=== PATIENT | female | born 1935 | race Caucasian/White ===

== ENCOUNTER 2018-12-12 06:21 | Day surgery (SDC) | payer MEDICARE, BC, MEDICAID ==
[~2018-12-12] VITALS: Ht 160 cm; Wt 89.3 kg
[2018-12-12] VITALS (12 sets, daily range): BP systolic 95–152; BP diastolic 42–65; PULSE 94–103; RESP 18–36; Ht 160 cm; Wt 89.3 kg
--- NOTE | 2018-12-12 06:32 | PREOPHP ---
DATE OF ADMISSION: 12/12/2018 HISTORY OF PRESENT ILLNESS: This 83-year-old patient is admitted for elective cataract surgery of th e left eye. The patient has had decrease surgery for a number of years and was supposed to have unde rgone cataract surgery; however due to elevated blood sugars, this was postponed until the patient's diabetic condition was optimized. The patient complains of progressive deterioration of vision in emperatriz th eyes. SYSTEMIC HISTORY: Positive for diabetes mellitus, rheumatoid arthritis, hyperlipidemia, essential hy pertension, GERD, chronic kidney disease, major depressive disorder. CURRENT MEDICATIONS: Include: 1. Sertraline. 2. Clonazepam. 3. Docusate. 4. Gabapentin. 5. Glipizide. 6. Omeprazole. 7. [place]. 8. Plaquenil. 9. Quetiapine. 10. Prednisone 5 mg. 11. Metformin. ALLERGIES: THERE ARE NO KNOWN ALLERGIES. PHYSICAL EXAMINATION: The visual acuity is 20/50 in the right eye and 20/400 in the left eye. Slit lamp examination reveals a glaucoma filtering tube in the anterior chamber of the right eye and a pos terior chamber intraocular lens in appropriate position in the right eye. The left eye has anterior cortical nuclear sclerotic and posterior subcapsular cataract changes. Applanation tonometry is 10 m mHg in the right eye and 13 mmHg in the left eye. Examination of the retina is grossly within normal limits. DIAGNOSIS: Advanced nuclear sclerotic and posterior subcapsular cataract, left eye. PLAN: Cataract extraction with lens implant, left eye. The risks and alternatives to the surgery ibrahim ve been discussed with the patient as well as the hope for improvement of visual acuity leading to gr eater ability to perform activities of daily living. The patient understands this and agrees to proc eed with surgery. Dictated By: DEVORAH CONTEH/DAVID Conf#: [id number] DID#: [id number]
[2018-12-12] MEDS ORDERED: LIDOCAINE 4% (MPF) 5 ML INJ ONE (07:00)
[2018-12-12] MEDS ORDERED: CEFAZOLIN 1 GM INJ ONE (07:00)
[2018-12-12] MEDS ORDERED: DEXAMETHASONE 4 MG/ML 1 ML INJ ONE (07:01)
[2018-12-12] MEDS ORDERED: NA HYALURONATE/CHONDROITIN 0.5 ML SYG ONE (07:01)
[2018-12-12] MEDS ORDERED: TETRACAINE 0.5% 4 ML OPH ONE (07:01)
[2018-12-12] MEDS ORDERED: GENTAMICIN 80 MG INJ ONE (07:01)
[2018-12-12] MEDS ORDERED: CARBACHOL 0.01% 1.5 ML OPH INJ ONE (07:01)
[2018-12-12] MEDS ORDERED: EPINEPHrine 1 MG INJ ONE (07:01)
--- NOTE | 2018-12-12 07:06 | PREAC ---
Date/Time of Note Date/Time of Note DATE: 12/12/18 TIME: 07:05 Anesthesia Eval and Record Evaluation Time Pre-Procedure Interview DATE: 12/12/18 TIME: 07:05 Age 83 Sex female NPO: 8 hrs Preoperative diagnosis LEFT EYE CATARACT Planned procedure LEFT EYE CATARACT EXTRACTION W/ IOL Past Medical History Past Medical History: Includes Cardio: HTN, Dyslipidemia Endo: Diabetes Renal: CKD GI: GERD Psych: Depression Surgery & Anesthesia Issues No known issue Meds Anticoagulation: No Beta Brenda within 24 hr: No Reason Beta Brenda not given: Pt. not on B-Brenda Reported Medications Prednisone* (Prednisone*) 5 Mg Tab, 5 MG PO DAILY, TAB 12/12/18 Quetiapine Fumarate* (Quetiapine Fumarate*) 100 Mg Tablet, 100 MG PO DAILY, TAB 12/12/18 Sennosides* (Senna Lax*) 8.6 Mg Tablet, 1 TAB PO DAILY PRN for CONSTIPATION, TAB 12/12/18 Sertraline Hcl* (Zoloft*) 100 Mg Tablet, 200 MG PO DAILY, #60 TAB 12/12/18 Throat Lozenges* (Cepastat*) 9 Eleanor Lozenge, 1 [place] Q3H PRN, LOZENGE 12/12/18 Linagliptin (TRADJENTA) 5 Mg Tablet, 5 MG PO DAILY, TAB 12/12/18 Tramadol Hcl* (Ultram*) 50 Mg Tablet, 50 MG PO BID PRN for PAIN MANAGEMENT, TAB 12/12/18 Tramadol HCl (Tramadol HCl) 50 Mg Tablet, 50 MG PO Q6H PRN for MODERATE PAIN LEVEL 4-6, #120 TAB 12/12/18 Acetaminophen* (Acetaminophen*) 650 Mg Tablet, 650 MG PO Q6H PRN for MILD PAIN LEVEL 1-3, #30 TAB AND FEVER 12/12/18 Insulin Glargine* (Lantus*) 100 Unit/Ml Soln, 10 UNIT SC DAILY, #1 VIAL 12/12/18 Metformin Hcl* (Metformin Hcl*) 1,000 Mg Tablet, 1000 MG PO WITH BREAKFAST DINNE, #60 TAB 12/12/18 Magnesium Hydroxide* (Milk Of Magnesia*) 400 Mg/5 Ml Oral.susp, 30 ML PO DAILY PRN for CONSTIPATION, ML 12/12/18 Multivitamins* (Theragran*) 1 Tab Tab, 1 TAB PO DAILY, TAB 12/12/18 Hydrocodone/Acetaminophen ([place] 5-325 Tablet) 1 Each Tablet, 1 EACH PO Q6 PRN for SEVERE PAIN LEVEL 7-10, TAB 12/12/18 Omeprazole* (Omeprazole*) 20 Mg Capsule.dr, 20 MG PO BID, #60 CAP 12/12/18 Hydroxychloroquine Sulfate* (Plaquenil*) 200 Mg Tab, 200 MG PO BID, TAB 12/12/18 Clonazepam* (Clonazepam*) 0.5 Mg Tablet, 0.5 MG PO TID PRN for ANXIETY, TAB 12/12/18 Rosuvastatin Calcium* (Crestor*) 20 Mg Tablet, 20 MG PO QHS, #30 TAB 12/12/18 Docusate Sodium* (Docusate Sodium*) 100 Mg Capsule, 100 MG PO DAILY PRN for CONSTIPATION, #30 CAP 12/12/18 Bisacodyl (Dulcolax) 10 Mg Supp.rect, 10 MG RC DAILY PRN for CONSTIPATION, SUPP.RECT 12/12/18 Polyvinyl Alcohol (Tears Again) 15 Ml Drops, 1 DRP BOTH EYES QID, BOTTLE 12/12/18 Current Medications Diclofenac Sodium (Voltaren 0.1%) 1 drop Q5 MIN X 3 OPER ; Start 12/12/18 at 07:30; Stop 12/12/18 at 19:30 Tropicamide (Mydriacyl 1%) 1 drop Q5 MIN X3 OPER ; Start 12/12/18 at 07:30; Stop 12/12/18 at 19:30 Moxifloxacin HCl (Vigamox) 1 drop Q5 MIN X 3 OPER ; Start 12/12/18 at 07:30; Stop 12/12/18 at 19:30 Cyclopentolate/ Phenylephrine (Cyclomydril Oph 2 ml) 1 drop Q5 MIN X 3 OPER ; Start 12/12/18 at 07:30; Stop 12/12/18 at 19:30 Sodium Chloride 1,000 ml @ 25 mls/hr Q24H IV ; Start 12/12/18 at 07:30; Stop at 19:30 Meds reviewed: Yes Allergies Coded Allergies: No Known Allergy (Unverified , 12/12/18) Allergies Reviewed: Yes Labs/Studies Labs Reviewed: Reviewed by anesthesiologist test: N/A Studies: ECG, CXR (patchy right basilar infiltrate or atelectasis) Pre-procedure Exam Airway: Adequate mouth opening Mallampati: Mallampati II Teeth: Normal Lung: Normal Heart: Normal ASA Physical Status ASA physical status: 3 Emergency: None Planned Anesthetic General/MAC: MAC Pre-operative Attestations Prior to commencing anesthesia and surgery, the patient was re-evaluated, there was verification of: *The patient's identity *The results of appropriate recent lab work and preoperative vital signs *The above evaluation not changing prior to induction *Anesthetic plan, risk benefits, alternative and complications discussed with patient/family; questions answered; patient/family understands, accepts and wishes to proceed. AWA WEEMS December 12, 2018 07:06
[2018-12-12] MEDS ORDERED: MIDAZOLAM 1 MG/ML 2 ML INJ ONE (07:08)
[2018-12-12] MEDS ORDERED: CYCLOPENTOLATE/PHENYLEPH 2 ML OPH OPER SCH (07:30)
[2018-12-12] MEDS ORDERED: DICLOFENAC 0.1% 2.5 ML OPH OPER SCH (07:30)
[2018-12-12] MEDS ORDERED: MOXIFLOXACIN 0.5% 3 ML OPH OPER SCH (07:30)
[2018-12-12] MEDS ORDERED: TROPICAMIDE 1% 15 ML OPH OPER SCH (07:30)
[2018-12-12] MEDS ORDERED: SOD CHLORIDE 0.9% 1,000 ML IV SCH (07:30)
[2018-12-12] MEDS ORDERED: POLY15DR25 BOTH EYES (07:46)
[2018-12-12] MEDS ORDERED: BISA10SU55 RC (07:49)
[2018-12-12] MEDS ORDERED: DOCU-159 PO (07:49)
[2018-12-12] MEDS ORDERED: CRES20 PO (07:50)
[2018-12-12] MEDS ORDERED: HYDR200T5 PO (07:50)
[2018-12-12] MEDS ORDERED: CLON0.5T14 PO (07:50)
[2018-12-12] MEDS ORDERED: OMEP20CA16 PO (07:51)
[2018-12-12] MEDS ORDERED: HYDR-4011 PO (07:52)
[2018-12-12] MEDS ORDERED: MAGN400O19 PO (07:52)
[2018-12-12] MEDS ORDERED: MULTI PO (07:52)
[2018-12-12] MEDS ORDERED: METF100010 PO (07:53)
[2018-12-12] MEDS ORDERED: LANT3I SC (07:53)
[2018-12-12] MEDS ORDERED: ACET-2047 PO (07:54)
[2018-12-12] MEDS ORDERED: TRAM50TA2 PO (07:55)
[2018-12-12] MEDS ORDERED: TRAM50TA PO (07:56)
[2018-12-12] MEDS ORDERED: LINA5TAB PO (07:56)
[2018-12-12] MEDS ORDERED: SERT100T PO (07:57)
[2018-12-12] MEDS ORDERED: CEPASTAT MT (07:57)
[2018-12-12] MEDS ORDERED: SENN-120 PO (07:57)
[2018-12-12] MEDS ORDERED: PRED5TAB PO (07:58)
[2018-12-12] MEDS ORDERED: QUET100T32 PO (07:58)
--- NOTE | 2018-12-12 08:22 | PAC ---
Date/Time of Note Date/Time of Note DATE: 12/12/18 TIME: 08:22 Post-Anesthesia Notes Post-Anesthesia Note Last documented vital signs Vital Signs Date Temp Pulse Resp B/P (MAP) Pulse Ox O2 O2 Flow FiO2 Time Delivery Rate 12/12/18 98.0 103 18 152/63 96 Room Air 08:06 (92) Activity: WNL Respiratory function: WNL Cardiovascular function: WNL Mental status: Baseline Pain reasonably controlled: Yes Hydration appropriate: Yes Nausea/Vomiting absent: Yes AWA WEEMS December 12, 2018 08:22
[2018-12-12] MEDS ORDERED: PROPOFOL 100 ML ONE (08:31)
[2018-12-12] MEDS ORDERED: LIDOCAINE 1% (MPF) 10 ML INJ ONE (08:56)
[2018-12-12] MEDS ORDERED: hydrALAzine 20 MG INJ IV PRN (09:00)
[2018-12-12] MEDS ORDERED: FENTAnyl 50 MCG/ML VIAL ONE (09:00)
[2018-12-12] MEDS ORDERED: LABETALOL HCL 20MG INJ IV PRN (09:00)
--- NOTE | 2018-12-12 09:19 | PAC ---
Date/Time of Note Date/Time of Note DATE: 12/12/18 TIME: 09:19 Post-Anesthesia Notes Post-Anesthesia Note Last documented vital signs Vital Signs Date Temp Pulse Resp B/P (MAP) Pulse Ox O2 O2 Flow FiO2 Time Delivery Rate 12/12/18 98.0 103 18 152/63 96 Room Air 08:06 (92) Activity: WNL Respiratory function: WNL Cardiovascular function: WNL Mental status: Baseline Pain reasonably controlled: Yes Hydration appropriate: Yes Nausea/Vomiting absent: Yes AWA WEEMS December 12, 2018 09:19
[2018-12-12] MEDS ORDERED: ACETAMINOPHEN 325 MG TAB PO ONE (09:30)
[2018-12-12] MEDS ORDERED: ACETAMINOPHEN 325 MG TAB ONE (09:35)
--- NOTE | 2018-12-12 09:57 | OPR ---
DATE OF OPERATION: 12/12/2018 PREOPERATIVE DIAGNOSES: Nuclear sclerotic and posterior subcapsular cataract, left eye. POSTOPERATIVE DIAGNOSES: Nuclear sclerotic and posterior subcapsular cataract, left eye. OPERATION PERFORMED: Cataract extraction with lens implant, left eye. SURGEON: Devorah Smith M.D. ANESTHESIOLOGIST: Dr. Mario Alberto Cevallos. ANESTHESIA: Local standby. PROCEDURE: The patient was brought to the operating room and placed on the table with an IV in place and the patient attached to an desk monitor. Oxygen was given via face mask. After some intravenous sedation was administered, local anesthesia was given using Xylocaine 2% with epinephrine, mixed with Marcaine 0.5%. This was given in a lid block and retrobulbar injection. The patient was then prepped and draped in the usual sterile manner. A wire lid speculum was inserted between the lids of the left eye. A Superblade was used to enter th e anterior chamber at the corneoscleral limbus at the 10:30 o'clock position. A separate incision wa s made using a 3.0-mm keratome which entered the corneoscleral junction at the 12 o'clock position. Through this 3-mm opening, an irrigating cystotome was introduced into the anterior chamber. The maria elena mber was filled with Viscoat and an anterior capsulotomy was performed. Balanced salt solution was t hen used for hydrodissection of the lens. A phacoemulsification handpiece was then brought into the field and introduced into the anterior chamber. The lens nucleus was emulsified using a deep groove and cracking the nucleus into quadrants. Following this, each quadrant was aspirated and emulsified at the pupillary margin. After this was completed, the irrigation/aspiration handpiece was brought to the field, introduced in to the posterior chamber, and the lens cortical material was removed. When this was completed, addit ional Viscoat was injected into the anterior and posterior chambers. The 3-mm opening had its internal lips enlarged, and then the posterior chamber intraocular lens octavio uring 16.0 diopters ([employer] Model LI61AO) was then injected into the posterior c hamber using the lens injector system. After the leading haptic was introduced into the capsular bag and the lens optic was present in the center of the eye, the injector was removed and the trailing h aptic was grasped with non-toothed forceps and introduced into the capsular fold superiorly. A [place] ey hook was then used to rotate the intraocular lens so that the lips were oriented in the horizontal meridian. One 10-0 nylon suture was placed across the wound. Prior to tying, the irrigation/aspiration handpiece was reintroduced into the anterior chamber to rem ove the Viscoat. Miochol was instilled to constrict the pupil, and then the 10-0 nylon suture was ti ed. The ends were cut short and then the knot was buried. Then, 0.5 mL of dexamethasone and 0.5 mL of Ancef were injected into the sub-[place]on space in the infer ior fornix. Ciloxan drops were then placed on the surface of the eye. The speculum was removed and a patch was applied. The patient then left the operating room in satisfactory condition. Dictated By: DEVORAH CONTEH/DAVID Conf#: [id number] DID#: [id number] CC: DEVORAH SMITH MD;*EndCC*
== END 2018-12-12 11:00 ==
LOC: SDS 06:21
PROVIDERS: ATTEND Ophthalmology
DX: H25.12 Age-related nuclear cataract, left eye (principal); I12.9 Hypertensive chronic kidney disease with stage 1 through stage 4 chronic kidney disease, or unspecified chronic kidney disease; N18.9 Chronic kidney disease, unspecified; E11.9 Type 2 diabetes mellitus without complications; Z79.84 Long term (current) use of oral hypoglycemic drugs; Z79.4 Long term (current) use of insulin
CPT/HCPCS: 66984; 80048; 82962; J0171; J0690; J1100; J1580; J2250; J3010; J7030; V2632